=== PATIENT | male | born 2005 | race Caucasian/White ===

== ENCOUNTER 2025-07-20 00:08 | Emergency (ER) | payer OTHER ==
[~2025-07-20] VITALS: Ht 170.2 cm; Wt 56.8 kg
[2025-07-20 00:21] VITALS: BP 120/63; PULSE 76; RESP 18; TEMP 97.9; O2SAT 99
[2025-07-20] MEDS ORDERED: DIPH25CA85 PO (00:50)
[2025-07-20] MEDS ORDERED: IBUP-1492 PO (00:50)
[2025-07-20] MEDS: IBUPROFEN 600 MG TABLET PO ONE (00:55)
== END 2025-07-20 01:00 | disposition home or self-care (01) ==
LOC: EMS 00:13
DX: L55.9 Sunburn, unspecified (principal); L29.9 Pruritus, unspecified
CPT/HCPCS: 99283